=== PATIENT | female | born 1980 | race American Indian/Alaskan Native ===

== ENCOUNTER 2020-09-30 06:49 | Day surgery (SDC) | payer OTHER ==
[~2020-09-30 06:49] MED LIST: FOLIC ACID1 MG PO; IRON1 TAB PO
== END 2020-09-30 11:50 | disposition home or self-care (01) ==
LOC: AMB-ENDOS 06:49
PROVIDERS: ATTEND Surgery
DX: K59.09 Other constipation (principal); Z20.822 Contact with and (suspected) exposure to COVID-19; Z12.11 Encounter for screening for malignant neoplasm of colon

== ENCOUNTER 2020-10-28 17:15 | Emergency (ER) | payer OTHER ==
[~2020-10-28] VITALS: Ht 170.2 cm; Wt 68.0 kg
[2020-10-28] MEDS ORDERED: DICLOFENAC SODI75 MG PO (20:56)
[2020-10-28] MEDS ORDERED: BACTRIM DS TAB1 EACH PO (20:56)
== END 2020-10-28 21:04 | disposition home or self-care (01) ==
LOC: ER 17:15
DX: L02.412 Cutaneous abscess of left axilla (principal)